=== PATIENT | male | born 1970 ===

== ENCOUNTER 2016-09-23 10:41 | Emergency (ER) | payer BC ==
[2016-09-23 10:53] VITALS: BP 117/86
--- NOTE | 2016-09-23 11:28 | UC ---
Hand/Wrist HPI - HPI Summary HPI Summary: right arm / forearm numbness and tingling x 1 year , getting worse over the past few weeks no know injury , symptoms are worse at night or when playing the drum improves by shaking his arm - History Of Current Complaint Chief Complaint: UCUpperExtremity Stated Complaint: RIGHT ARM NUMBNESS Time Seen by Provider: 09/23/16 11:05 Hx Obtained From: Patient Onset/Duration: Gradual Onset, Lasting Weeks - one year, Still Present, Worse Since - past few weeks Severity Initially: Moderate Severity Currently: Moderate Character Of Pain: Aching Aggravating Factor(s): Movement, Lifting, Flexion, Extension Alleviating: Rest, Other - shaking his right arm Associated Signs And Symptoms: Positive: Numbness/Tingling - Allergies/Home Medications Allergies/Adverse Reactions: Allergies Allergy/AdvReac Type Severity Reaction Status Date / Time No Known Allergies Allergy Verified 05/01/15 11:55 PMH/Surg Hx/FS Hx/Imm Hx Endocrine History Of: Denies: Diabetes Cardiovascular History Of: Denies: Cardiac Disorders, Hypertension Respiratory History Of: Denies: Asthma - Surgical History Surgical History: Yes Surgery Procedure, Year, and Place: tonsillectomy - Family History Known Family History: Positive: None Negative: Diabetes - Social History Alcohol Use: Rare Substance Use Type: None Smoking Status (MU): Never Smoked Tobacco - Immunization History Most Recent Influenza Vaccination: none Review of Systems Constitutional: Negative Skin: Negative Eyes: Negative ENT: Negative Respiratory: Negative Cardiovascular: Negative Gastrointestinal: Negative Genitourinary: Negative Motor: Negative Neurovascular: Negative Musculoskeletal: Negative Neurological: Negative Psychological: Negative All Other Systems Reviewed And Are Negative: Yes Physical Exam Triage Information Reviewed: Yes Appearance: Well-Appearing, No Pain Distress, Well-Nourished Vital Signs: Initial Vital Signs Temp 98.7 F 09/23/16 10:45 Pulse 82 09/23/16 10:45 Resp 16 09/23/16 10:45 BP 117/86 09/23/16 10:45 Pulse Ox 100 09/23/16 10:45 Vital Signs Reviewed: Yes Eyes: Positive: Conjunctiva Clear ENT: Positive: Normal ENT inspection, Hearing grossly normal, Pharynx normal Neck exam: Normal Neck: Positive: Supple, Nontender, No Lymphadenopathy Respiratory: Positive: Chest non-tender, Lungs clear, Normal breath sounds Cardiovascular: Positive: RRR, No Murmur, Pulses Normal Abdominal Exam: Normal Musculoskeletal Exam: Normal Musculoskeletal: Positive: Strength Intact, ROM Intact, No Edema, Other: - right arm : could not find the distrubution of the involved nerve ulnar vs radial vs median nerve Neurological Exam: Normal Hand/Wrist Course/Dx - Course Course Of Treatment: could not find the distrubution of the involved nerve ulnar vs radial vs median nerve , may need nerve conduction study. will make a referral to ortho for eval and tx - Differential Dx/Diagnosis Provider Diagnoses: paresthesia right arm Discharge - Discharge Plan Condition: Stable Disposition: HOME Prescriptions: Naproxen [Naproxen 500 MG TABS] 500 mg PO BID #20 tab Patient Education Materials: Paresthesia (ED) Forms: *Work Release Referrals: Jose L Soriano MD [Medical Doctor] - As Soon As Possible Additional Instructions: may need a nerve conduction study referral to ortho for eval and tx
== END 2016-09-23 11:48 | disposition home or self-care (01) ==
LOC: UCCORT 10:41
DX: R20.2 Paresthesia of skin (principal)
CPT/HCPCS: 99212; G0463

== ENCOUNTER 2017-08-22 08:35 | Emergency (ER) | payer BC ==
[2017-08-22 09:10] VITALS: BP 118/77
--- NOTE | 2017-08-22 10:09 | UC ---
Throat Pain/Nasal Eric HPI - HPI Summary HPI Summary: Pt presents with sore throat for the last 3 days. He tells me that over the weekend he was sharing food and drinks with family members for Easter. The next day his sister told him that she was diagnosed with strep. Pt did not have symptoms at that time, but began to develop a sore throat 2 days ago. Denies fever, chills, cough, SOB, chest pain. - History of Current Complaint Hx Obtained From: Patient Onset/Duration: Sudden Onset Severity: Mild Pain Intensity: 4 Pain Scale Used: 0-10 Numeric <Gt Cooley - Last Filed: 08/22/17 10:39> <Madison Garay - Last Filed: 08/22/17 10:58> - History of Current Complaint Chief Complaint: UCGeneralIllness Stated Complaint: SORE THROAT Time Seen by Provider: 08/22/17 09:38 - Allergies/Home Medications Allergies/Adverse Reactions: Allergies Allergy/AdvReac Type Severity Reaction Status Date / Time No Known Allergies Allergy Verified 08/22/17 09:06 PMH/Surg Hx/FS Hx/Imm Hx - Additional Past Medical History Additional PMH: Sleep apnea Previously Healthy: Yes - Surgical History Surgical History: Yes Surgery Procedure, Year, and Place: tonsillectomy - Family History Known Family History: Positive: None Negative: Diabetes - Social History Occupation: Employed Full-time Lives: With Family Alcohol Use: Rare Substance Use Type: None Smoking Status (MU): Never Smoked Tobacco - Immunization History Most Recent Influenza Vaccination: none <Gt Cooley - Last Filed: 08/22/17 10:39> Review of Systems Constitutional: Negative Skin: Negative Eyes: Negative ENT: Sore Throat Respiratory: Negative Cardiovascular: Negative Gastrointestinal: Negative Neurovascular: Negative Neurological: Negative Psychological: Negative All Other Systems Reviewed And Are Negative: Yes <Gt Cooley - Last Filed: 08/22/17 10:39> Physical Exam - Summary Physical Exam Summary: GENERAL: NAD. WDWN. No pain distress. SKIN: No rashes, sores, ulcers, masses, lesions. HEENT: Head: AT/NC Eyes: Conjunctiva clear without inflammation or discharge. Ears: Hearing grossly normal. TMs intact, no bulging, erythema, or edema. Nose: Nasal mucosa pink and moist. NTTP maxillary and frontal sinus. Throat: Posterior oropharynx mild erythema. No tonsils observed. No exudates. Uvula midline. No hoarse voice or muffled voice. NECK: Supple. Nontender. No lymphadenopathy. CHEST: CTAB. No r/r/w. No accessory muscle use. Breathing comfortably and in no distress. CV: RRR. Without m/r/g. Pulses intact. Brisk cap refill. NEURO: Alert. CN II-XII grossly intact. PSYCH: Age appropriate behavior. Triage Information Reviewed: Yes Vital Signs: Initial Vital Signs Temp 99.3 F 08/22/17 09:07 Pulse 98 08/22/17 09:07 Resp 16 08/22/17 09:07 BP 118/77 08/22/17 09:07 Pulse Ox 97 08/22/17 09:07 <Gt Cooley - Last Filed: 08/22/17 10:39> Vital Signs: Initial Vital Signs Temp 99.3 F 08/22/17 09:07 Pulse 98 08/22/17 09:07 Resp 16 08/22/17 09:07 BP 118/77 08/22/17 09:07 Pulse Ox 97 08/22/17 09:07 <Madison Garay - Last Filed: 08/22/17 10:58> Throat Pain/Nasal Course/Dx - Course Course Of Treatment: POC strep positive. Amoxicillin - Differential Dx/Diagnosis Provider Diagnoses: Strep pharyngitis <Gt Cooley - Last Filed: 08/22/17 10:39> Discharge - Sign-Out/Discharge Documenting (check all that apply): Discharge - Billing Disposition and Condition Condition: STABLE Disposition: HOME <Gt Cooley - Last Filed: 08/22/17 10:39> - Billing Disposition and Condition Condition: STABLE Disposition: HOME <Madison Garay - Last Filed: 08/22/17 10:58> - Discharge Plan Condition: Stable Disposition: HOME Prescriptions: Amoxicillin PO (*) [Amoxicillin 500 MG CAP*] 500 mg PO Q12H #20 cap Patient Education Materials: Strep Throat (DC) Forms: *Work Release Referrals: No Primary Care Phys,NOPCP [Primary Care Provider] - Additional Instructions: If you develop a fever, shortness of breath, chest pain, new or worsening symptoms - please call your PCP or go to the ED. Attestation Statement User Type: Provider - I was available for consult. This patient was seen by the KAYLAN. The patient was not presented to, seen by, or examined by me. -Lula <Madison Garay - Last Filed: 08/22/17 10:58>
== END 2017-08-22 10:19 | disposition home or self-care (01) ==
LOC: UCCORT 08:35
DX: J02.0 Streptococcal pharyngitis (principal)
CPT/HCPCS: 87651; 99212; G0463

== ENCOUNTER 2018-10-13 09:02 | Emergency (ER) | payer BC ==
[2018-10-13 10:08] VITALS: BP 120/81
--- NOTE | 2018-10-13 10:19 | UC ---
Eye Complaint HPI - HPI Summary HPI Summary: both eyes red with drainage this am. son has the same. exposed to pink eye. 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 Negative: Photophobia, Vision Impairment Bilateral - Risk Factors Acute Glaucoma Risk Factors: Negative - Allergies/Home Medications Allergies/Adverse Reactions: Allergies Allergy/AdvReac Type Severity Reaction Status Date / Time No Known Allergies Allergy Verified 10/13/18 10:09 Home Medications: Home Medications Loratadine [Claritin 10 MG CAP] 1 tab PO DAILY 10/13/18 [History Confirmed 10/13] PMH/Surg Hx/FS Hx/Imm Hx - Additional Past Medical History Additional PMH: allergies - Surgical History Surgical History: Yes Surgery Procedure, Year, and Place: tonsillectomy - Family History Known Family History: Positive: None Negative: Diabetes - Social History Lives: With Family Alcohol Use: Rare Substance Use Type: None Smoking Status (MU): Never Smoked Tobacco - Immunization History Most Recent Influenza Vaccination: none Vaccination Up to Date: Yes Review of Systems All Other Systems Reviewed And Are Negative: No Constitutional: Negative: Fever Skin: Negative: Rash Eyes: Positive: Drainage, Eye Redness. Negative: Blurred Vision, Diplopia, Photophobia ENT: Negative: Sore Throat, Ear Ache, Nasal Discharge Neurological: Negative: Headache Physical Exam Triage Information Reviewed: Yes Appearance: Well-Appearing Vital Signs: Initial Vital Signs Temp 97.4 F 10/13/18 10:02 Pulse 90 10/13/18 10:02 Resp 18 10/13/18 10:02 BP 120/81 10/13/18 10:02 Pulse Ox 99 10/13/18 10:02 Vital Signs Reviewed: Yes Eyes: Positive: Conjunctiva Inflamed, Discharge, Other: - no periorbital rash or swelling ENT: Positive: Pharynx normal, TMs normal. Negative: Nasal congestion, Nasal drainage Neck: Positive: Supple Respiratory: Positive: No respiratory distress Musculoskeletal: Positive: ROM Intact Neurological: Positive: Alert Psychological: Positive: Normal Response To Family, Age Appropriate Behavior Skin Exam: Normal Skin: Negative: Rashes Eye Complaint Course/Dx - Differential Dx/Diagnosis Provider Diagnosis: Conjunctivitis Discharge - Sign-Out/Discharge Documenting (check all that apply): Patient Departure All imaging exams completed and their final reports reviewed: No Studies - Discharge Plan Condition: Stable Disposition: HOME Prescriptions: Polymyx/Trimethoprim OPTH* [Polytrim OPHTH*] 1 drop BOTH EYES Q3H 7 Days #1 btl Patient Education Materials: Conjunctivitis (ED) Referrals: LETTY Son [Medical Doctor] - Additional Instructions: FOLLOW UP IF NOT BETTER IN 5 DAYS OR SOONER IF WORSE - Billing Disposition and Condition Condition: STABLE Disposition: Home
== END 2018-10-13 10:32 | disposition home or self-care (01) ==
LOC: UCCORT 09:02
DX: H10.9 Unspecified conjunctivitis (principal)
CPT/HCPCS: 99212; G0463